=== PATIENT | male | born 1970 | race American Indian/Alaskan Native ===

== ENCOUNTER 2021-10-12 20:56 | Emergency (ER) | payer OTHER ==
[2021-10-13] MEDS ORDERED: traMADol 50 MG TAB PO ONE (00:46)
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
--- NOTE | 2021-10-13 01:06 | XRay Report ---
Cervical spine 3 views INDICATION: Neck pain after injury IMPRESSION: Severe discogenic degenerative change at C5-C6 with mild central canal narrowing at this level. No prevertebral soft tissue edema is appreciated. No fracture identified. Signer Name: Erik Herrera MD Signed: 10/13/2021 1:01 AM Workstation Name: [id number]
[2021-10-13 01:28] VITALS: BP 127/87
== END 2021-10-13 01:26 | disposition home or self-care (01) ==
LOC: ED 20:56
DX: S16.1XXA Strain of muscle, fascia and tendon at neck level, initial encounter (principal); V89.2XXA Person injured in unspecified motor-vehicle accident, traffic, initial encounter; Y93.89 Activity, other specified; Y92.89 Other specified places as the place of occurrence of the external cause; Y99.8 Other external cause status
CPT/HCPCS: 72040; 99283